=== PATIENT | male | born 1960 | race Caucasian/White ===

== ENCOUNTER → 2020-12-18 | Outpatient (CLI) | payer OTHER ==
[~2020-12-18] MED LIST: ACETYLCYSTEINE 20% PO; ASPIR-LOW81 MG PO; AZITHROMYCIN250 MG PO; BRILINTA 90 MG90 MG PO; CRESTOR 10 MG T10 MG PO; FLONASE 0.05% N16 GM; HABITROL 21 MG P1 EA TD; ISOSORBIDE MONO30 MG PO; LISINOPRIL5 MG PO; LOPRESSOR 25 MG25 MG PO; NITROGLYCERIN0.4 MG SL; PANTOPRAZOLE SO40 MG PO; TIZANIDINE HCL4 MG PO
[2020-12-18 16:21] LABS: HEMOGLOBIN 16.8 gm/dl (14.0-17.5); RED BLOOD COUNT 5.44 M/UL (4.20-5.50); WHITE BLOOD COUNT 8.4 K/UL (4.5-11.0)
[2020-12-19 09:13] LABS: VITAMIN D, 25-HYDROXY 26.3 ng/mL (30.0-100.0)
[2020-12-19 11:13] LABS: THYROXINE (T4) 8.7 ug/dL (4.5-12.0)
== END ==
LOC: LAB 14:42
PROVIDERS: Nurse Practitioner
DX: Z12.5 Encounter for screening for malignant neoplasm of prostate (principal); R74.8 Abnormal levels of other serum enzymes; R51.9 Headache, unspecified; E78.5 Hyperlipidemia, unspecified; I10 Essential (primary) hypertension; F17.290 Nicotine dependence, other tobacco product, uncomplicated
CPT/HCPCS: 36415; 71046; 80053; 80061; 84153; 84436; 84443; 84480; 85025; 85652; 86140

== ENCOUNTER 2020-12-19 22:20 | Observation (INO) | payer OTHER ==
[~2020-12-19] VITALS: Ht 177.8 cm; Wt 95.3 kg
[~2020-12-19 22:20] MED LIST changes: -ACETYLCYSTEINE 20% PO; -AZITHROMYCIN250 MG PO; -FLONASE 0.05% N16 GM; -ISOSORBIDE MONO30 MG PO; -LOPRESSOR 25 MG25 MG PO; -NITROGLYCERIN0.4 MG SL; -TIZANIDINE HCL4 MG PO
[2020-12-19 22:58] LABS: HEMOGLOBIN 16.1 gm/dl (14.0-17.5); RED BLOOD COUNT 5.24 M/UL (4.20-5.50); WHITE BLOOD COUNT 9.5 K/UL (4.5-11.0)
[2020-12-19 23:27] LABS: BUN/CREATININE RATIO 12 (0-10)
[2020-12-20] MEDS ORDERED: FLONASE 0.05% N16 GM (09:34)
[2020-12-20] MEDS ORDERED: TIZANIDINE HCL4 MG PO (09:34)
[2020-12-20] MEDS ORDERED: NITROGLYCERIN0.4 MG SL (09:35)
[2020-12-20] MEDS ORDERED: AZITHROMYCIN250 MG PO (09:36)
[2020-12-20] MEDS ORDERED: LOPRESSOR 25 MG25 MG PO (16:21)
[2020-12-21 05:20] LABS: WHITE BLOOD COUNT 9.5 K/UL (4.5-11.0)
[2020-12-21 05:28] LABS: HEMOGLOBIN 13.8 gm/dl (14.0-17.5); RED BLOOD COUNT 4.63 M/UL (4.20-5.50)
[2020-12-21 05:48] LABS: BUN/CREATININE RATIO 10 (0-10)
[2020-12-21] MEDS ORDERED: ISOSORBIDE MONO30 MG PO (12:35)
[2021-02-12] MEDS ORDERED: ISOSORBIDE MONO30 MG PO (09:53)
[2021-02-12] MEDS ORDERED: ACETYLCYSTEINE 20% PO (10:00)
== END 2020-12-21 12:57 | disposition home or self-care (01) ==
LOC: ER1 22:20 → CDU 12-20 01:02 → MED SURG 4 12-20 20:23
PROVIDERS: Emergency Medicine; ADMIT Family Medicine
DX: I25.119 Atherosclerotic heart disease of native coronary artery with unspecified angina pectoris (principal); I12.9 Hypertensive chronic kidney disease with stage 1 through stage 4 chronic kidney disease, or unspecified chronic kidney disease; N18.30 Chronic kidney disease, stage 3 unspecified; I25.2 Old myocardial infarction; F17.210 Nicotine dependence, cigarettes, uncomplicated; Z98.61 Coronary angioplasty status; Z91.013 Allergy to seafood; Z79.899 Other long term (current) drug therapy; Z20.822 Contact with and (suspected) exposure to COVID-19
CPT/HCPCS: 0240U; 36415; 71045; 78452; 80053; 82550; 82553; 83874; 84484; 85025; 93005; 93017; 96372; 99285; A9502; G0378; J1650

== ENCOUNTER → 2020-12-25 | Outpatient (CLI) | payer OTHER ==
[~2020-12-25] MED LIST changes: +ACETYLCYSTEINE 20% PO; +AZITHROMYCIN250 MG PO; +FLONASE 0.05% N16 GM; +ISOSORBIDE MONO30 MG PO; +LOPRESSOR 25 MG25 MG PO; +NITROGLYCERIN0.4 MG SL; +TIZANIDINE HCL4 MG PO
== END ==
LOC: HEART 5 10:00
DX: I25.119 Atherosclerotic heart disease of native coronary artery with unspecified angina pectoris (principal); I10 Essential (primary) hypertension; E78.5 Hyperlipidemia, unspecified; Z95.9 Presence of cardiac and vascular implant and graft, unspecified; Z95.828 Presence of other vascular implants and grafts

== ENCOUNTER → 2021-02-10 | Outpatient (CLI) | payer OTHER ==
[2021-02-10 16:14] LABS: HEMOGLOBIN 16.3 gm/dl (14.0-17.5); RED BLOOD COUNT 5.34 M/UL (4.20-5.50); WHITE BLOOD COUNT 8.9 K/UL (4.5-11.0)
== END ==
LOC: LAB 15:35
PROVIDERS: Internal Medicine Interventional Cardiology
DX: Z51.81 Encounter for therapeutic drug level monitoring (principal); I25.10 Atherosclerotic heart disease of native coronary artery without angina pectoris; E78.5 Hyperlipidemia, unspecified; I10 Essential (primary) hypertension; Z95.820 Peripheral vascular angioplasty status with implants and grafts
CPT/HCPCS: 80048; 85025; 85610; 85730; 93005

== ENCOUNTER → 2021-02-12 | Outpatient (CLI) | payer OTHER ==
[~2021-02-12] VITALS: Ht 177.8 cm; Wt 96.2 kg
== END ==
LOC: CATH 09:12
DX: Z01.810 Encounter for preprocedural cardiovascular examination (principal); I25.10 Atherosclerotic heart disease of native coronary artery without angina pectoris; E78.5 Hyperlipidemia, unspecified; I10 Essential (primary) hypertension; Z95.820 Peripheral vascular angioplasty status with implants and grafts
CPT/HCPCS: 99152; C1769; C1894; J1644; J2250; J2930; J3010; J7030; Q9965

== ENCOUNTER → 2021-02-26 | Outpatient (CLI) | payer OTHER ==
[2021-02-26 13:17] LABS: HEMOGLOBIN 16.1 gm/dl (14.0-17.5); RED BLOOD COUNT 5.29 M/UL (4.20-5.50); WHITE BLOOD COUNT 6.6 K/UL (4.5-11.0)
== END ==
LOC: US 12:14
PROVIDERS: Internal Medicine Nephrology
DX: N28.1 Cyst of kidney, acquired (principal); N17.9 Acute kidney failure, unspecified; E78.5 Hyperlipidemia, unspecified
CPT/HCPCS: 36415; 80053; 82550; 82570; 83970; 84100; 84156; 85027

== ENCOUNTER → 2021-04-11 | Outpatient (CLI) | payer OTHER ==
[2021-04-12 07:12] LABS: COMPLEMENT C3, SERUM 128 mg/dL (82-167); COMPLEMENT C4, SERUM 18 mg/dL (12-38); HBSAG SCREEN Negative (Negative); HCV ANTIBODY <0.1 (0.0-0.9)
[2021-04-12 09:13] LABS: CREATININE, URINE 184.9 mg/dL (Not Estab.)
[2021-04-12 15:13] LABS: ANTI-DSDNA ANTIBODIES 4 IU/mL (0-9)
[2021-04-14 08:10] LABS: ANTIMYELOPEROXIDASE (MPO) ABS <9.0 U/mL (0.0-9.0); ANTIPROTEINASE 3 (PR-3) ABS <3.5 U/mL (0.0-3.5); ATYPICAL PANCA <1:20 titer (Neg:<1:20); CYTOPLASMIC (C-ANCA) <1:20 titer (Neg:<1:20); PERINUCLEAR (P-ANCA) <1:20 titer (Neg:<1:20)
[2021-04-14 11:10] LABS: ANTIGLOMERULAR BM AB 2 units (0-20)
[2021-04-14 15:11] LABS: A/G RATIO 1.5 (0.7-1.7); ALBUMIN 3.8 g/dL (2.9-4.4); ALPHA-1-GLOBULIN 0.2 g/dL (0.0-0.4); ALPHA-2-GLOBULIN 0.8 g/dL (0.4-1.0); BETA GLOBULIN 0.9 g/dL (0.7-1.3); GAMMA GLOBULIN 0.8 g/dL (0.4-1.8); GLOBULIN, TOTAL 2.7 g/dL (2.2-3.9); IMMUNOGLOBULIN A, QN, SERUM 164 mg/dL (90-386); IMMUNOGLOBULIN G, QN, SERUM 726 mg/dL (603-1613); IMMUNOGLOBULIN M, QN, SERUM 147 mg/dL (20-172); M-SPIKE Comment: g/dL (Not Observed); PROTEIN, TOTAL, SERUM 6.5 g/dL (6.0-8.5)
== END ==
LOC: LAB 09:48
PROVIDERS: Internal Medicine Nephrology
DX: N17.9 Acute kidney failure, unspecified (principal)
CPT/HCPCS: 36415; 80053; 82043; 82570; 82784; 83520; 84155; 84156; 84165; 86038; 86160; 86162; 86225; 86256; 86334; 86803; 87340

== ENCOUNTER → 2021-04-16 | Outpatient (CLI) | payer OTHER ==
[2021-04-16 11:12] LABS: URINE TOTAL PROTEIN 125 mg/dl
== END ==
LOC: LBRF 10:33
PROVIDERS: Internal Medicine Nephrology
DX: N17.9 Acute kidney failure, unspecified (principal)
CPT/HCPCS: 84156